=== PATIENT | female | born 1970 | race Caucasian/White ===

== ENCOUNTER 2016-12-23 17:23 | Emergency (ER) | payer MEDICAID ==
[2016-12-23 17:28] VITALS: TEMP 98.2
--- NOTE | 2016-12-23 17:36 | CPEKG ---
Heart Rate: 69 RR Interval: 870 P-R Interval: 140 QRSD Interval: 84 QT Interval: 404 QTC Interval: 433 P Wilkinson: 53 QRS Wilkinson: 50 T Wave Wilkinson: 5 EKG Severity - ABNORMAL ECG - EKG Impression: SINUS RHYTHM EKG Impression: NONSPECIFIC T ABNORMALITIES, ANTERIOR LEADS Electronically Signed By: Jaye Rodas 23-Dec-2016 22:36:53
--- NOTE | 2016-12-23 17:39 | EDPHY ---
H & P Time Seen by Provider: 12/23/16 17:30 HPI/ROS: CHIEF COMPLAINT: Chest pain HISTORY OF PRESENT ILLNESS: The patient is a 46-year-old female presenting with chest pain that started last night. The patient came home from work and developed sudden onset of chest pain. She experienced this pain every 10-15 minutes from 6pm-10pm. Each episode lasted about 30 seconds. These episodes have occurred less frequently throughout the day today. However, after lunch the chest pain returned and remained present for longer than previous episodes. She noticed sternal tenderness to the touch. Only RF for cardiac disease is prior smoking hx. REVIEW OF SYSTEMS: A comprehensive 10 point review of systems is otherwise negative aside from elements mentioned in the history of present illness. Past Medical/Surgical History: Denies. Social History: Quit smoking 15 years ago. Works as a dental oil refinery process technician. Smoking Status: Former smoker Physical Exam: General Appearance: Alert, pleasant Eyes: Pupils equal and round, no conjunctival pallor or injection ENT, Mouth: Mucous membranes moist Neck: Normal inspection Respiratory: Lungs are clear to auscultation Cardiovascular: Regular rate and rhythm Gastrointestinal: Abdomen is soft and non-tender Neurological: A&O, nonfocal, normal gait Skin: Warm and dry, no rash Extremities: Nontender, no pedal edema Psychiatric: Mood and affect normal Constitutional: Initial Vital Signs Temperature (C) 36.8 C 12/23/16 17:25 Heart Rate 63 12/23/16 17:25 Respiratory Rate 18 12/23/16 17:25 Blood Pressure 151/94 H 12/23/16 17:25 O2 Sat (%) 97 12/23/16 17:25 O2 Delivery Mode Room Air Allergies/Adverse Reactions: No Known Allergies Allergy (Verified 12/23/16 17:25) Home Medications: Medication Instructions Recorded NK [No Known Home Meds] 12/23/16 Medical Decision Making - Diagnostics EKG Interpretation: EKG interpreted by me reveals normal sinus rhythm, normal axis, normal intervals , ST segments normal. Nonspecific T abnormalities, anterior leads. Interpretation: normal EKG Imaging Results: Chest X-Ray 12/23/16 17:30 Impression: Prominence of perihilar interstitial markings and peribronchial cuffing. Findings are nonspecific but can be seen with bronchitis, reactive airway disease, or viral process. Imaging: I viewed and interpreted images myself ED Course/Re-evaluation: Patient presents with intermittent episodes of chest pain since last night. stat EKG without ischemic changes. Doubt ACS, given atypical and brief sx. Vital signs normal and no RF for PE; if ddimer negative, I can safely exclude PE. Plan to check lab work including BMP, CBC, D-dimer, and Troponin. Chest x- ray ordered. Chest x-ray is negative for pneumonia. Lab work is unremarkable. D-dimer is normal. Troponin is negative. Likely musculoskeletal etiology of cp. 6:20 p.m.: I discussed findings with the patient. 15mg Toradol IV given. Warning signs discussed. Will f/u PCP. Differential Diagnosis: includes though not limited to ACS, PE, PTX, pneumonia, GERD, dissection - Data Points Laboratory Results: Laboratory Results 12/23/16 17:35 12/23/16 13:35 Medications Given: Discontinued Medications Ketorolac Tromethamine (Toradol) 15 mg IVP EDNOW ONE Stop: 12/23/16 18:19 Last Admin: 12/23/16 18:25 Dose: 15 mg Departure - Departure Disposition: Home, Routine, Self-Care Clinical Impression: Chest pain Qualifiers: Chest pain type: other chest pain Qualified Code(s): R07.89 - Other chest pain ; R07.8 - Other chest pain Condition: Good Instructions: Chest Pain (ED) Additional Instructions: Take 600mg Ibuprofen every 6-8 hours as needed for pain. Followup with your primary care physician if pain persists. Return to the Emergency Department with severe pain, new, or worsening symptoms. Referrals: Ponce Jenkins MD [Primary Care Provider] - As per Instructions Report Scribed for: Jaye Rodas Report Scribed by: Judy Davis Date of Report: 12/23/16 Time of Report: 17:39 Physician Review and Approval Statement: 12/23/16 17:39 Portions of this note were transcribed by a senior medical transcriptionist. I personally performed the history, physical exam, and medical decision-making; and confirmed the accuracy of the information in the transcribed note.
[2016-12-23 17:47] LABS: % IMMATURE GRANULYOCYTES 0.3 % (0.0-1.1); ABSOLUTE IMMATURE GRANULOCYTES 0.02 10^3/uL (0.00-0.10); ADD DIFF? NO; ADD MORPH? NO; ADD SCAN? NO; ATYPICAL LYMPHOCYTE FLAG 0 (0-99); FRAGMENT RBC FLAG 0 (0-99); HEMATOCRIT 48.2 % (38.0-47.0); LEFT SHIFT FLG 0 (0-99); LIPEMIA HEMOLYSIS FLAG 80 (0-99); MEAN CELL HEMOGLOBIN CONCENTR. 33.2 g/dL (32.4-36.7); MEAN CELL VOLUME 87.5 fL (81.5-99.8); MEAN PLATELET VOLUME 9.4 fL (8.7-11.7); PLATELET CLUMPS FLAG 10 (0-99); PLATELET COUNT 289 10^3/uL (150-400); RED BLOOD CELL COUNT 5.51 10^6/uL (4.18-5.33)
[2016-12-23 18:08] LABS: ANION GAP 15 mEq/L (8-16); CALCIUM 9.8 mg/dL (8.5-10.4); CARBON DIOXIDE 24 mEq/l (22-31); CHLORIDE 101 mEq/L (97-110); CREATININE 1.2 mg/dL (0.6-1.0); GLOMERULAR FILTRATION RATE 49; GLUCOSE 89 mg/dL (70-100); SODIUM 140 mEq/L (134-144)
[2016-12-23] MEDS ORDERED: KETOROLAC 15 MG/1 ML SDV IVP ONE (18:18)
[2016-12-23 18:23] LABS: TROPONIN I < 0.012 ng/mL (0.000-0.034)
[2016-12-23 18:26] VITALS: BP 127/91; PULSE 58; RESP 16; O2SAT 94
== END 2016-12-23 18:26 | disposition home or self-care (01) ==
DX: R07.89 Other chest pain (principal); Z87.891 Personal history of nicotine dependence
CPT/HCPCS: 96374; J1885

== ENCOUNTER 2018-05-15 10:47 | Emergency (ER) | payer MEDICAID ==
[2018-05-15 10:55] VITALS: BP 120/80
--- NOTE | 2018-05-15 11:12 | EDPHY ---
H & P Time Seen by Provider: 05/15/18 11:01 HPI/ROS: CHIEF COMPLAINT: Skin rash 4 days HISTORY OF PRESENT ILLNESS: Son has recent diagnosis of ring worm. She presents with left-sided trunk and flank and hip rash for past 4 days that is itchy, 24 hr ago also had a little bit on her right hip and right AC area. Red, raised, not associated with trouble breathing or facial swelling. New Lavender soap and a new lotion. She did wear same pair pants for last 5 days because she is at a job where she had to sit for a while that was the most comfortable pair of pants. REVIEW OF SYSTEMS: No pain. No nausea vomiting. No respiratory symptoms. PAST MEDICAL HISTORY: Social history: Here with her son General Appearance: Alert and conversant, cooperative. Patient has red slightly raised area on the left side of her torso from her breast down to the crest of her hip with the small area on the right hip and a small area on the right AC. There is very slight scaling. No blisters, no vesicles. Normal respiration. Not hot to the touch and no lymphangitis. No fluctuance. Emergency Department course/MDM: Presents with likely allergic rash, contact dermatitis more likely than urticaria. Advised her not to use the new lotion or soap, discussed that definitive cause not established at this time. Oral Benadryl and oral prednisone discussed and consented. No evidence of anaphylaxis or airway involvement. Smoking Status: Former smoker Constitutional: Initial Vital Signs Temperature (C) 36.7 C 05/15/18 10:53 Heart Rate 78 05/15/18 10:53 Respiratory Rate 16 05/15/18 10:53 Blood Pressure 120/80 05/15/18 10:53 O2 Sat (%) 97 05/15/18 10:53 O2 Delivery Mode Room Air Allergies/Adverse Reactions: No Known Allergies Allergy (Verified 05/15/18 10:53) Home Medications: Medication Instructions Recorded predniSONE [prednisone 20mg (RX)] 40 mg PO DAILY 7 Days tab 05/15/18 MDM/Departure - Depart Disposition: Home, Routine, Self-Care Clinical Impression: Rash Condition: Good Instructions: Prednisone (By mouth), Acute Rash (ED) Additional Instructions: Likely allergic rash. Please stop using the new soap and lotion as we discussed. Return for worsening rash or fever or trouble breathing or facial swelling. Oral prednisone for 1 week. Benadryl 25-50 mg by mouth every 6-8 hours as needed for the next 3 days for itching. Prescriptions: predniSONE [prednisone 20mg (RX)] 40 mg PO DAILY 7 Days tab Referrals: Ponce Jenkins MD [Primary Care Provider] - As per Instructions
== END 2018-05-15 11:23 | disposition home or self-care (01) ==
DX: R21 Rash and other nonspecific skin eruption (principal)